=== PATIENT | female | born 1980 | race Caucasian/White ===

== ENCOUNTER → 2021-07-24 | Outpatient (CLI) | payer BC ==
--- NOTE | 2021-07-24 11:26 | Diagnostic Imaging Report ---
INDICATION: Routine screening. No prior mammogram is available for comparison. This is a baseline study. 2-D and 3-D bilateral screening mammography was performed with CAD. Both breasts are heterogeneously dense, limiting the sensitivity of mammography. There is a lobulated nodule in the upper outer right breast posterior depth. This is approximately 7 cm from the nipple. Left breast is unremarkable. No malignant-appearing microcalcifications are seen. Axillae are unremarkable. IMPRESSION: BI-RADS 0 Lobulated mass in the upper outer right breast 7 cm from the nipple. Further evaluation with ultrasound is recommended. ACR BI-RADS Category 0: Incomplete. (Needs additional imaging evaluation). Result letter will be mailed to the patient. Note: At least 10% of breast cancer is not imaged by mammography. Dictated by: Dictated on workstation # [id number]
== END ==
LOC: RAD 09:30
DX: Z12.31 Encounter for screening mammogram for malignant neoplasm of breast (principal); N63.11 Unspecified lump in the right breast, upper outer quadrant
CPT/HCPCS: 77063; 77067

== ENCOUNTER → 2021-07-31 | Outpatient (CLI) | payer BC ==
--- NOTE | 2021-07-31 12:54 | Diagnostic Imaging Report ---
INDICATION: Abnormal mammogram. This study is performed for further evaluation. CORRELATION is made with a screening mammogram from 07/24/2021. Sonographic interrogation of the outer right breast was performed. There is a complex mass noted at the 9:00 location of the right breast, 7 cm from the nipple, likely accounting for the mammographic density. This has mixed cystic and solid components. This could represent a cluster of cysts versus other complex mass. This measures 12 mm x 11 mm x 8 mm. No internal vascularity is seen. No posterior acoustic shadowing is present. IMPRESSION: BI-RADS Category 4 Complex mass at the 9:00 location of the right breast, 7 cm from the nipple, accounting for the mammographic density. Tissue sampling is recommended. This would be amenable to ultrasound-guided core biopsy. ACR BI-RADS Category 4: Suspicious abnormality. Result letter will be mailed to the patient. Note: At least 10% of breast cancer is not imaged by mammography. Dictated by: Dictated on workstation # [id number]
== END ==
LOC: RAD 10:19
DX: N63.15 Unspecified lump in the right breast, overlapping quadrants (principal)

== ENCOUNTER → 2021-08-05 | Outpatient (CLI) | payer BC ==
[~2021-08-05] VITALS: Ht 170.2 cm; Wt 72.7 kg
[~2021-08-05] MED LIST: LIDOCAINE 1% INJ 20 ML 20 ML VIAL INJ ONE
--- NOTE | 2021-08-05 10:47 | Diagnostic Imaging Report ---
Indication: Status post ultrasound-guided right breast biopsy. Unilateral right 2-D CC and ML mammography was performed. There is a marker clip in the far posterior right breast. It is not well-seen on the cc or exaggerated CC views due to posterior nature. IMPRESSION: Clip in the far posterior right breast, status post ultrasound-guided core biopsy. Dictated by: Dictated on workstation # [id number]
--- NOTE | 2021-08-05 11:14 | Diagnostic Imaging Report ---
Indication: Right breast nodule. Patient presents for ultrasound guided biopsy. Patient brought to the sonographic suite placed on table in the supine position. Ultrasound imaging of the right breast was performed to evaluate appropriate entry site. The right breast was then prepped and draped in usual sterile fashion. Small amount of 1% lidocaine was utilized for local anesthesia. Multiple core biopsies were made of the complex cystic lesion at the 9:00 location of the right breast, 7 cm from the nipple. The lesion did appear to collapse after the initial pass consistent with a cystic nature. A marker clip was then deployed. Hemostasis was obtained using manual compression. Patient tolerated the procedure well and was sent for post procedure mammogram in satisfactory condition. IMPRESSION: Successful ultrasound guided core biopsy of the complex cystic lesion in the 9:00 location right breast, 7 cm from the nipple. Pathology results are currently pending. Dictated by: Dictated on workstation # [id number]
== END ==
LOC: RAD 09:00
DX: N60.01 Solitary cyst of right breast (principal)
CPT/HCPCS: 19083; 77065; A4648; G0279

== ENCOUNTER 2021-12-23 11:56 | Emergency (ER) | payer BC ==
[~2021-12-23] VITALS: Ht 170.2 cm; Wt 72.5 kg
--- NOTE | 2021-12-23 12:04 | ED Upper Extremity ---
General Stated Complaint: L ARM NUMBNESS Source: patient, other (PA from [place] ) Exam Limitations: no limitations (ALLY NARANJO APRN) History of Present Illness Date Seen by Provider: Dec 23, 2021 Time Seen by Provider: 13:38 Initial Comments This is a well-appearing 41-year-old female who presented to the ER with complaints of left arm swelling, numbness, delayed capillary refill. She was referred to the emergency department from [place] [facility] for arterial ultrasound. She recently had ORIF of her left radius by Dr. HARKINS at [facility] on 12/19/2021. States she was discharged home after procedure and was doing well until she noticed increasing swelling and numbness of her thumb and first 3 fingers. The emergency department provider called and updated that patient had delayed capillary refill and they had been in touch with Dr. HARKINS however patient refused to go to [facility] due to insurance despite Dr. Harkins's recommendation. States she would like to come over here to this ER to have arterial study and she is she is able to avoid another visit to [facility] until her follow-up appointment at the end of this month. (ALLY NARANJO APRN) Allergies and Home Medications Allergies Coded Allergies: No Known Drug Allergies (Unverified , 08/05/21) Patient Home Medication List Home Medication List Reviewed: Yes (ALLY NARANJO APRN) Hydrocodone/Acetaminophen (Hydrocodone-Acetamin 5-325 mg) 1 Each Tablet, 1 TAB PO Q8H PRN for PAIN-SEE DOSE INSTRUCTIONS Prescribed by: ALLY NARANJO on 12/23/21 1523 Review of Systems Constitutional: no symptoms reported EENTM: no symptoms reported Respiratory: no symptoms reported Cardiovascular: no symptoms reported Gastrointestinal: no symptoms reported Genitourinary: no symptoms reported Musculoskeletal: muscle pain (ALLY NARANJO APRN) Physical Exam Vital Signs Vital Signs - First Documented 12/23/21 12:01 Temp 37.2 Pulse 75 Resp 18 B/P (MAP) 126/88 (101) Pulse Ox 99 O2 Delivery Room Air (LISA PAULINO MD) Vital Signs Capillary Refill : (ALLY NARANJO APRN) Height, Weight, BMI Height: '" Weight: lbs. oz. kg; 25.09 BMI Method: General Appearance: WD/WN, no apparent distress HEENT: normal ENT inspection Neck: full range of motion, normal inspection Cardiovascular: regular rate, rhythm, no murmur Respiratory: lungs clear, normal breath sounds, no respiratory distress Back: normal inspection Shoulder: normal inspection, non-tender, no evidence of injury, normal ROM Elbow/Forearm: Left (left arm: soft tissue swelling, mostly located at anterior wrist, full ROM fingers. Decreased sensation of left thumb, index, middle, and right finger. Normal sensation in 5th finger. ) Wrist: No bone tenderness; Yes ecchymosis (left ), Yes soft tissue tenderness (left), Yes swelling (left) Hand: asymmetry, ecchymosis, soft tissue tenderness, swelling Neurologic/Tendon: normal motor functions, normal tendon functions, no evidence tendon injury, sensory deficit (decreased sensation in left thumb, index finger, middle finger, and ring finger. Normal sensation left little finger. ) Neurologic/Psychiatric: no motor/sensory deficits, alert, normal mood/affect, oriented x 3 Skin: normal color, warm/dry (ALLY NARANJO APRN) Progress/Results/Core Measures Progress Progress Note : Progress Note Patient examined and in no acute distress. Was able to remove Ortho-Glass splint and placed in sling while transporting to ultrasound. Her ultrasound showed monophasic arterial supply was no obstruction appreciated. Updated Dr. HARKINS and clouded over image of ultrasound. His nurse returned call and states that he would like patient placed in Velcro cock up splint and keep follow-up with him. Symptoms are likely related to increased swelling around median nerve. However if she develops any new or worsening symptoms she can return to the emergency department for further evaluation. Discharge POC reviewed and she is agreeable with plan. (ALLY NARANJO APRN) Diagnostic Imaging Comments [facility], [place] NAME: LYNDA MENDES [facility] REC#: [id number] PT STATUS: DEP ER : 1980 PHYSICIAN: ALLY NARANJO APRN ADMIT DATE: 12/23/21/ER Signed Date of Exam:12/23/21 US LEFT UP EXT ARTERIAL [id number] PROCEDURE: US LEFT UP EXT ARTERIAL [id number] TECHNIQUE: Multiple realtime grayscale images were obtained over the left upper extremity in various projections. Duplex Doppler and color Doppler images were also obtained. INDICATION: Status post ORIF of the left wrist several days earlier. Patient has decreased sensation and moderate bruising to the left upper extremity. FINDINGS: There are triphasic waveforms in the subclavian artery as well as the axillary artery. There are triphasic waveforms in the proximal brachial artery however mid and distal brachial as well as the radial and ulnar arteries show monophasic waveforms. Velocities remain within normal limits. No high-grade stenosis or occlusion is seen. No fluid collection or hematoma is identified. There is no mass. IMPRESSION: There are monophasic waveforms in the distal brachial artery as well as radial and ulnar artery but no high-grade stenosis or occlusion is detected. Dictated by: Dictated on workstation # [id number] Dict: 12/23/21 1311 Trans: 12/23/21 155 [facility] [id number] Interpreted by: JOSSY JOSUE MD Electronically signed by: JOSSY JOSUE MD 12/23/21 061 Comments [facility] [place] NAME: LYNDA MENDES [facility] REC#: [id number] PT STATUS: DEP ER : 1980 PHYSICIAN: ALLY NARANJO APRN ADMIT DATE: 12/23/21/ER Signed Date of Exam:12/23/21 FOREARM, LEFT, 2 VIEWS INDICATION: Discoloration and tingling of the left fingers. ORIF on Tuesday. Status post fracture. EXAMINATION: Left forearm, 12/23/2021. FINDINGS: Four views of the forearm. There is side-plate with intervening screws along the distal radius. The fracture of the radius is in near-anatomic alignment. The remaining osseous structures are unremarkable. Joint space is preserved. IMPRESSION: 1. Uncomplicated postoperative findings. Dictated by: Dictated on workstation # [id number] Dict: 12/23/21 1303 Trans: 12/23/211711 [id number] Interpreted by: CARMINA SHAW MD Electronically signed by: CARMINA SHAW MD 12/23/211711 (ALLY NARANJO APRN) Departure Communication (Admissions) Time/Spoke to Consulting Phy: 13:34 Dr. Harkins (ALLY NARANJO APRN) Impression Primary Impression: Numbness and tingling in left arm Additional Impression: Status post open reduction and internal fixation (ORIF) of fracture Disposition: 01 HOME, SELF-CARE Condition: Improved Departure-Patient Inst. Decision time for Depature: 15:20 (ALLY NARANJO APRN) Referrals: NO,LOCAL PHYSICIAN (PCP/Family) Primary Care Physician Patient Instructions: Hand Numbness Add. Discharge Instructions: Plan: 1. Take Hydrocodone every 8 hours as needed for pain. 2. Keep follow up with Dr. Harkins as scheduled. 3. Continue to elevated your arm as much as possible. 4. You may remove your sling as needed through the day, but wear to sleep every night. 5. Return for any new, concerning, or worsening symptoms. Scripts Hydrocodone/Acetaminophen (Hydrocodone-Acetamin 5-325 mg) 1 Each Tablet 1 TAB PO Q8H PRN for PAIN-SEE DOSE INSTRUCTIONS, #20 TAB 0 Refills Prov: ALLY NARANJO APRN 12/23/21 ATTENDING PHYSICIAN NOTE: I was physically present as attending physician in the emergency department during the care of this patient, but I was not directly involved in the decision making or delivery of care for this patient. (LISA PAULINO MD) ALLY NARANJO APRN Dec 23, 2021 12:04 LISA PAULINO MD Dec 26, 2021 06:44
--- NOTE | 2021-12-23 13:05 | Diagnostic Imaging Report ---
INDICATION: Discoloration and tingling of the left fingers. ORIF on Tuesday. Status post fracture. EXAMINATION: Left forearm, 12/23/2021. FINDINGS: Four views of the forearm. There is side-plate with intervening screws along the distal radius. The fracture of the radius is in near-anatomic alignment. The remaining osseous structures are unremarkable. Joint space is preserved. IMPRESSION: 1. Uncomplicated postoperative findings. Dictated by: Dictated on workstation # [id number]
--- NOTE | 2021-12-23 13:27 | Diagnostic Imaging Report ---
PROCEDURE: US LEFT UP EXT ARTERIAL [id number] TECHNIQUE: Multiple realtime grayscale images were obtained over the left upper extremity in various projections. Duplex Doppler and color Doppler images were also obtained. INDICATION: Status post ORIF of the left wrist several days earlier. Patient has decreased sensation and moderate bruising to the left upper extremity. FINDINGS: There are triphasic waveforms in the subclavian artery as well as the axillary artery. There are triphasic waveforms in the proximal brachial artery however mid and distal brachial as well as the radial and ulnar arteries show monophasic waveforms. Velocities remain within normal limits. No high-grade stenosis or occlusion is seen. No fluid collection or hematoma is identified. There is no mass. IMPRESSION: There are monophasic waveforms in the distal brachial artery as well as radial and ulnar artery but no high-grade stenosis or occlusion is detected. Dictated by: Dictated on workstation # [id number]
[2021-12-23] MEDS ORDERED: ACHD5005 PO (15:23)
[2021-12-23 15:34] VITALS: BP 121/105
== END 2021-12-23 15:34 | disposition home or self-care (01) ==
LOC: EDUNIT# 11:56 → ER 11:58
DX: R20.0 Anesthesia of skin (principal); R20.2 Paresthesia of skin; Z96.698 Presence of other orthopedic joint implants
CPT/HCPCS: 73090; 93931; 99283; A4565